=== PATIENT | male | born 1965 | race Caucasian/White ===

== ENCOUNTER 2019-08-12 17:12 | Inpatient (IN) | payer MEDICAID ==
[~2019-08-12] VITALS: Ht 177.8 cm; Wt 107.5 kg
[2019-08-12 17:12] VITALS: BP_SYST 129
--- NOTE | 2019-08-12 20:16 | NUR ---
Patient to ER bed 8 to gown for evaluation. Side rails up. Report given to AJ MERINO.
--- NOTE | 2019-08-12 20:20 | NUR ---
FRANCISCO Gamboa at bedside examining patient.
--- NOTE | 2019-08-12 20:25 | NUR ---
Pt C/O bilateral diabetic foot ulcers on bilateral feet and LT leg. States the pain in the Lt leg is radiating to the ankle and knee. Was recently seen at [facility] for the same chief complaint and was discharged with antibiotics and educated to change his socks TID. Addendum: 08/12/19 at 2209 by [email or web address] Pt also C/O LT hand numbness. Denies any other symptoms at this time. Will continue to monitor.
[2019-08-12] MEDS ORDERED: ONDANSETRON HCL 4 MG/2 ML VIAL IVP ONE (20:45)
[2019-08-12] MEDS ORDERED: NACL 0.9% 1,000 ML IV ONE (20:45)
[2019-08-12 20:58] LABS: BASOPHILS # (AUTO) 0.1 K/uL (0.0-0.2); BASOPHILS % (AUTO) 0.5 % (0.0-2.0); EOSINOPHILS # (AUTO) 0.1 K/uL (0.0-0.4); EOSINOPHILS % (AUTO) 0.5 % (0.0-4.0); HEMATOCRIT 35.9 % (36-54); HEMOGLOBIN 12.2 g/dL (14.0-18.0); LYMPHOCYTES # (AUTO) 1.1 K/uL (1.0-5.5); LYMPHOCYTES % (AUTO) 9.7 % (20.5-51.5); MEAN CORPUSCULAR HEMOGLOBIN 30 pg (27-31); MEAN CORPUSCULAR HGB CONC 34 % (32-36); MEAN CORPUSCULAR VOLUME 88 fL (79.0-98.0); MONOCYTES # (AUTO) 0.9 K/uL (0.0-1.0); MONOCYTES % (AUTO) 7.5 % (1.7-9.3); NEUTROPHILS # (AUTO) 9.5 K/uL (1.8-7.7); NEUTROPHILS % (AUTO) 81.8 % (40.0-70.0); PLATELET COUNT (AUTO) 237 K/uL (130-430); RED BLOOD CELL COUNT(AUTO) 4.07 MIL/uL (4.2-6.2); WHITE BLOOD COUNT (AUTO) 11.6 K/uL (4.8-10.8)
[2019-08-12 21:09] LABS: CREATININE 1.46 mg/dL (0.55-1.30); POTASSIUM 4.2 mmol/L (3.5-5.1)
[2019-08-12 21:15] LABS: ALBUMIN 3.2 g/dL (3.4-4.8)
[2019-08-12] MEDS ORDERED: ACETAMINOPHEN 500 MG TABLET PO ONE (21:15)
[2019-08-12] MEDS ORDERED: INSULIN REGULAR, HUMAN 10 UNITS/0.1 ML INJ SUBCUT ONE (21:15)
[2019-08-12] MEDS ORDERED: NS 250 ML IV ONE (21:30)
[2019-08-12] MEDS ORDERED: NACL 0.9% 2,000 ML IV ONE (21:30)
[2019-08-12] MEDS ORDERED: VANCOMYCIN HCL 1,000 MG in NS 250 ML IV ONE (21:30)
[2019-08-12] MEDS ORDERED: PIPERACILLIN/TAZO 3.375 GM in NS 50 ML IV ONE (21:30)
[2019-08-12] MEDS ORDERED: MORPHINE 4 MG/ML INJ. SYRINGE IVP ONE (21:45)
[2019-08-12] MEDS ORDERED: PIPERACILLIN/TAZOBACTAM 3.375 GM/VIAL (ZOSYN) IV ONE ×2 (21:59)
--- NOTE | 2019-08-12 22:10 | NUR ---
Pt is resting in bed, no acute distress noted. Will continue to monitor.
[2019-08-12] MEDS ORDERED: VANCOMYCIN HCL 1000 MG/VIAL IV ONE (22:21)
[2019-08-12] MEDS ORDERED: FAMO20TA8 PO (22:37)
[2019-08-12] MEDS ORDERED: GABA-533 PO (22:37)
[2019-08-12] MEDS ORDERED: METF1000 PO (22:37)
[2019-08-12] MEDS ORDERED: INSU100V SQ ×3 (22:37)
[2019-08-12] MEDS ORDERED: IBUP-1969 PO (22:37)
[2019-08-12] MEDS ORDERED: PRAZ1CAP2 PO (22:37)
[2019-08-12] MEDS ORDERED: LISI-600 PO (22:37)
[2019-08-12] MEDS ORDERED: SULF1TAB3 PO (22:37)
[2019-08-12] MEDS ORDERED: PRO20 PO (22:40)
--- NOTE | 2019-08-12 23:07 | NUR ---
Patient will be admitted to care of Dr. Parnell. Admitted to telemetry unit. Will go to room 134B. Belongings list completed. Summary report printed. Report will be given at bedside.
--- NOTE | 2019-08-12 23:24 | NUR ---
ADMISSION NOTE Received patient from ER via aj, received report from ANGELIQUE tolliver. Patient admitted with diagnosis of Cellulitis, sepsis. Patient oriented to hospital routine, call light, toileting and safety-patient verbalized understanding.
[2019-08-12 23:26] VITALS: BP_SYST 136
[2019-08-12 23:27] LABS: BILIRUBIN,URINE NEGATIVE (NEGATIVE); CLARITY/URINE CLEAR (CLEAR); COLOR,URINE YELLOW (YELLOW); GLUCOSE,URINE TRACE (NEGATIVE); KETONES,URINE TRACE (NEGATIVE); LEUKOCYTE ESTERASE ,URINE 1+ (NEGATIVE); NITRITE, URINE NEGATIVE (NEGATIVE); PH,URINE 6.5 (5.0-8.0); PROTEIN URINE 1+ (NEGATIVE); UROBILINOGEN,URINE 0.2 (0.2-1.0)
[2019-08-12 23:29] LABS: BLOOD, URINE TRACE (NEGATIVE)
[2019-08-12 23:33] LABS: BACTERIA,URINE FEW /HPF (None Seen)
--- NOTE | 2019-08-12 23:36 | NUR ---
Transfer to [facility] via ACLS protocol. Licensed nurse present. IV present no signs or symptoms of infiltration.
--- NOTE | 2019-08-13 00:18 | NUR ---
RN ROUNDS Patient aox4, placed on tele monitor, vital signs stable, BLE pain tolerable at this time, IV line to right hand intact and patent, no signs of infiltration, plan of care discussed with patient, verbalized understanding, compliant, oriented to room and call light for nurse assistance, safety measures in place.
--- NOTE | 2019-08-13 00:24 | NUR ---
MD Spoke to Dr. Duarte Parnell over the phone, patient was c/o of pain to lower extremities, new medication orders recieved, will carry out.
[2019-08-13] MEDS ORDERED: ONDANSETRON HCL 4 MG/2 ML VIAL IVP PRN ×2 (00:30→06:30)
[2019-08-13] MEDS ORDERED: MORPHINE 2 MG/ML INJ. SYRINGE IVP SCH (00:30)
[2019-08-13] MEDS ORDERED: PIPERACILLIN/TAZOBACTAM 3.375 GM/VIAL (ZOSYN) IV ONE (00:56)
--- NOTE | 2019-08-13 01:32 | NUR ---
RN ROUNDS Patient medicated with morphine 2 mg IVP one time dose, patient educated on use and side effect of medication, compliant, photos taken of wound to bilateral lower extremities. HS snack given.
--- NOTE | 2019-08-13 04:10 | NUR ---
CONSULTATION PAGED/CALLED Reason for Consultation: DIABETIC FOOT ULCER Person Who was Notified:OZZY Consulting Physician: RAYRAY Electrician Outside Specialty: ID Ordering Physician: Duarte WAGNER
--- NOTE | 2019-08-13 04:52 | NUR ---
RN ROUNDS Patient awake, ambulated to bathroom, steady gait noted, bilateral leg pain tolerable at this time.
[2019-08-13] MEDS: PIPERACILLIN/TAZO 3.375 GM in NS 50 ML IV SCH ×2 (05:12→13:00)
--- NOTE | 2019-08-13 05:30 | NUR ---
PAIN IN IV SITE Patient complaints of pain in the IV site when flushed with NS. Re inserted in the right hand 22 G needle, patency noted. Patient tolerated the procedure.
[2019-08-13] MEDS ORDERED: D5W 1,000 ML IV PRN (06:20)
[2019-08-13] MEDS ORDERED: GLUCOSE 15 GM GEL (in 37.5 GM TUBE) PO PRN (06:30)
[2019-08-13] MEDS ORDERED: ACETAMINOPHEN 325 MG TABLET PO PRN (06:30)
[2019-08-13] MEDS ORDERED: DEXTROSE 50% JECT 50 ML DISP.SYRIN IVP PRN (06:30)
[2019-08-13] MEDS ORDERED: IBUPROFEN 600 MG TABLET PO PRN (06:30)
[2019-08-13] MEDS ORDERED: LORazepam 2 MG/ML VIAL IVP PRN (06:30)
--- NOTE | 2019-08-13 06:55 | NUR ---
CONSULTATION PAGED/CALLED Reason for Consultation: [] ACUTE KIDNEY INJURY Person Who was Notified: [] OZZY Consulting Physician: [] DR DUNN Senior Outside Sales Representative Specialty: [] PROFESSOR OF RADIOLOGY Ordering Physician: [] DR Linda WAGNER
--- NOTE | 2019-08-13 06:58 | NUR ---
CLOSING NOTES Patient is awake, alert and oriented x4. Patient is watching TV. Patient has pain and no discomfort at this time. No respiratory distress. NO SOB. BS checked 229. Patients needs met and attended throughout the shift. Endorsed to morning shift nurse for continuity of care.
[2019-08-13 07:00] VITALS: BP_SYST 166
--- NOTE | 2019-08-13 07:00 | NUR ---
CONSULTATION PAGED/CALLED Reason for Consultation: [] DIABETIC FOOT ULCER Person Who was Notified: [] LEFT A VOICE MESSAGE Consulting Physician: [] SIL TEJEDA Cartridge Loading Operator Specialty: [] ALIGNER Ordering Physician: [] DR Linda WAGNER
[2019-08-13 08:00] VITALS: BP_SYST 166
[2019-08-13] MEDS: metFORMIN HCL 500 MG TABLET PO SCH ×2 (09:00→17:34)
[2019-08-13 09:28] LABS: BASOPHILS # (AUTO) 0.1 K/uL (0.0-0.2); BASOPHILS % (AUTO) 0.8 % (0.0-2.0); EOSINOPHILS # (AUTO) 0.2 K/uL (0.0-0.4); EOSINOPHILS % (AUTO) 2.1 % (0.0-4.0); HEMATOCRIT 35.9 % (36-54); HEMOGLOBIN 12.1 g/dL (14.0-18.0); LYMPHOCYTES # (AUTO) 0.6 K/uL (1.0-5.5); LYMPHOCYTES % (AUTO) 7.3 % (20.5-51.5); MEAN CORPUSCULAR HEMOGLOBIN 30 pg (27-31); MEAN CORPUSCULAR HGB CONC 34 % (32-36); MEAN CORPUSCULAR VOLUME 89 fL (79.0-98.0); MONOCYTES # (AUTO) 0.7 K/uL (0.0-1.0); MONOCYTES % (AUTO) 7.4 % (1.7-9.3); NEUTROPHILS # (AUTO) 7.4 K/uL (1.8-7.7); NEUTROPHILS % (AUTO) 82.4 % (40.0-70.0); PLATELET COUNT (AUTO) 267 K/uL (130-430); RED BLOOD CELL COUNT(AUTO) 4.06 MIL/uL (4.2-6.2); WHITE BLOOD COUNT (AUTO) 8.9 K/uL (4.8-10.8)
[2019-08-13] MEDS: MORPHINE 2 MG/ML INJ. SYRINGE IVP PRN ×2 (09:37→17:16)
[2019-08-13] MEDS: FLUoxetine HCL 20 MG CAPSULE (PROzac) PO SCH (09:41)
[2019-08-13] MEDS: GABAPENTIN 400 MG CAPSULE PO SCH ×3 (09:41→20:30)
[2019-08-13] MEDS: LISINOPRIL 20 MG TABLET PO SCH (09:42)
[2019-08-13] MEDS: FAMOTIDINE 20 MG TABLET PO SCH (09:47)
[2019-08-13 10:02] LABS: CALCIUM 8.8 mg/dL (8.4-11.0); CREATININE 1.19 mg/dL (0.55-1.30); POTASSIUM 4.8 mmol/L (3.5-5.1)
[2019-08-13 10:03] LABS: ALBUMIN 2.8 g/dL (3.4-4.8)
[2019-08-13 10:04] LABS: TOTAL BILIRUBIN 1.9 mg/dL (0.0-1.0)
[2019-08-13 10:05] LABS: C-REACTIVE PROTEIN QUANT 13.4 mg/dL (0-0.5)
[2019-08-13 10:08] LABS: ERYTHROCYTE SEDIMENTATION RATE 67 MM/HR (0-15)
--- NOTE | 2019-08-13 11:45 | NUR ---
WOUND EVALUATION: Wound Consult received from Dr. Dl Parnell. Thank you, Dr. Parnell, for the consult. Patient received in a Herb Bed with an IsoFlex JEANINE mattress, awake, alert, and oriented. Patient is able to turn in bed and ambulate independently. Dc Score is a 20. Past Medical History: Diabetes Mellitus, Hypertension, flesh eating bacterial infection, Neuropathy, skin graft abdomen, groin, foot. Admitted for evaluation of leaking diabetic ulcers on bilateral feet and left leg. Recent Labs: WBC 8.9, RBC 4.06, hemoglobin 12.1, hematocrit 35.9, ESR 67, sodium 131, BUN 15, creatinine 1.19, GFR 67, glucose 286, POC glucose 266, C-reactive protein 13.4, albumin 2.8. Microbiology: Blood culture results 2 in progress. Urine culture results in progress. Intrinsic factors that delay wound healing: Diabetes Mellitus, Neuropathy, Hypoalbuminemia. Extrinsic factors that delay wound healing: Decreased mobility. Wound Assessment: 1. Left Hallux, Plantar Aspect: Diabetic ulcer, present on admission. Wound bed has 100% yellow slough. Foul odor, scant yellow purulent drainage. Periwound intact. Wound measures 0.8 cm x 2.2 cm. Surrounding tissue has callused skin with 90% yellow callus, 10% black eschar. Entire site including callus/eschar and wound measures 5.0 cm x 3.0 cm. Nonpitting edema present on the extremity. Extremity has calor. Recommend: Cleanse wound with normal saline. Apply sure prep to periwound. Apply Venelex ointment to wound bed. Cover with nonadhesive foam dressing, cut to size. Wrap with Aminata wrap. Perform wound care daily, and as needed for dressing soiling or dislodgment. 2. Left Plantar Foot at First Metatarsal Head: Chronic diabetic ulcer, present on admission. Wound bed has 90% yellow eschar, black 10% black eschar on medial aspect of wound bed/periwound. No odor, no drainage. Dry, stable. Surrounding tissue has callused skin. Wound measures 0.5 cm x 0.6 cm. 3. Left Plantar Foot at Second Metatarsal Head: Chronic diabetic ulcer, present on admission. Wound bed has 90% yellow eschar, black 10% black eschar. No odor, no drainage. Dry, stable. Surrounding tissue has callused skin. Wound measures 1.4 cm x 1.7 cm. Recommend: No dressings needed. [employer] sites with Betadine. Continue to monitor site every shift. 4. Left Fifth Toe, superior to nail bed: Area of 50% Black discoloration, 50% dark red, under the skin. Possible chronic dry, closed bulla site. No odor, no drainage. Dry, stable. Site measures 0.6 cm x 1.5 cm. Recommend: No dressing needed. [employer] site with Betadine. Continue to monitor sites every shift. 5. Left Toenails (2, 4, 5): Black discoloration. No odor, no drainage. 6. Left Toenails (3, 4): Black discoloration. No odor, no drainage. Recommend: No dressings needed. Continue to monitor sites every shift. 7. Right Toe, Plantar Aspect: Diabetic ulcer, present on admission. Wound bed has 80% yellow eschar, 20% red eschar. Foul odor, scant yellow purulent drainage. Periwound intact. Surrounding tissue has callused skin. Wound measures 1.0 cm x 0.7 cm. Extremity has calor. Recommend: Cleanse wound with normal saline. Apply sure prep to periwound. Apply Venelex ointment to wound bed. Cover with nonadhesive foam dressing, cut to size. Wrap with Aminata wrap. Perform wound care daily, and as needed for dressing soiling or dislodgment. Also recommend: Encourage patient to reposition every 2 hours with pillow support and off-load pressure areas with pillows for pressure re-distribution. Offload, elevate and float bilateral heels with pillows. Perform skin care and monitor skin integrity Q shift.
[2019-08-13 12:00] VITALS: BP_SYST 140
[2019-08-13] MEDS ORDERED: PIPERACILLIN/TAZO 3.375/DEX-IS 50 ML IV SCH (12:00)
[2019-08-13] MEDS ORDERED: metFORMIN HCL 500 MG TABLET PO ONE (12:15)
[2019-08-13] MEDS ORDERED: BALSAM PERU/CASTOR OIL 60 GM OINT...G. TP ONE (12:30)
[2019-08-13] MEDS: NORMAL SALINE 5 ML DISP.SYRIN IVF SCH ×2 (13:12→20:41)
--- NOTE | 2019-08-13 15:11 | NUR ---
Wireless Sales Expert: FIELD CLINICAL ENGINEER received Homeless referrral. FIELD CLINICAL ENGINEER will do DCPA assessment, Homeless Assmt. and S. work assessment. FIELD CLINICAL ENGINEER met with pt. who had his sister, Garima Childs. Pt. stated sister could stay during FIELD CLINICAL ENGINEER's assessment. FIELD CLINICAL ENGINEER asked about pts. address listed on Face Sheet. He stated that was not accurate. He confiremd he was homeless with his son. They use to stay with his daughter, but due to a misunderstanding, they were asked to leave. Pt. stated he has been homeless for the past 5-6 months. From time to time, he stays with on his sister's sofa. Prior to being homeless, he was renting a room in [place], but the roommate and the homeowner association manager was raising the rent. Pt. only receives $195 in GR. Pt. stated substance abuse is not an issue for him. Pt. stated he is diabetic, needs a walker and needs a place to recuperate and reside. When asked if he has ever had a mental health Dx. pt. stated in 06/21, he was Dx. with PTSD by Dr. Rascon of [facility] who prescribes Prozac for pt. Pt stated he sees his therapist and psychiatrist on a regular basis. FIELD CLINICAL ENGINEER shared with pt. various resources including, Durable Power of Attny.. Homeless Packet, Mental Health resources, Medical Clinics. FIELD CLINICAL ENGINEER will follow up with a resource through [facility] , FS or Full Service Partnership. FIELD CLINICAL ENGINEER will call and follow up with pt. Addendum: 08/13/19 at 1633 by Latha Mclaughlin FIELD CLINICAL ENGINEER Wireless Sales Expert: Follow up homeless services FIELD CLINICAL ENGINEER called [facility] Full Service Partnership, Dewayne George,[phone] left a couple of msgs. FIELD CLINICAL ENGINEER would like to make a referral. FIELD CLINICAL ENGINEER called Access Line through [facility] [phone] and was given the Housing Navigator, Wali Echavarria [phone]. FIELD CLINICAL ENGINEER left a couple of msgs. FIELD CLINICAL ENGINEER was given the Homeless Service Prgm number, from Access, and spoke to Kristal who took down a referral on pt. FIELD CLINICAL ENGINEER can follow up on Friday. FIELD CLINICAL ENGINEER called [facility] spoke to pts. [facility] child welfare social worker Srinath French [phone] who stated pt. did not qualify for FSP because he did not have any phys hospitalizations. They did make a referral to their housing progrm. FIELD CLINICAL ENGINEER will share info with pt. and will follow up on Fri. FIELD CLINICAL ENGINEER will remain avaialable as needed.
--- NOTE | 2019-08-13 16:39 | NUR ---
CONSULTATION PAGED/CALLED Reason for Consultation: [] DM Person Who was Notified: [] ADINA Consulting Physician: [] Radha SMITH Asp Web Developer Specialty: [] ENDOCRINE Ordering Physician: [] DR Linda WAGNER
[2019-08-13 17:20] VITALS: BP_SYST 150
[2019-08-13] MEDS ORDERED: INSULIN Lispro 100 UNITS/ML VIAL (humaLOG) SQ SCH (17:30)
[2019-08-13 19:00] VITALS: BP_SYST 147
--- NOTE | 2019-08-13 19:15 | NUR ---
change of shift.pt.presents quiescent affect;calm.pt.presents cellulitis;wounds;feet.pt.presents no isolation status.pt.presents iv access intact;patent.iv fluids infusing.pt.utilizing the urinal;w/in pt.reach.general status stable.respiratory status stable.pt.capable to reposition self.call light/telephone w/in reach of the pt.
[2019-08-13 20:00] VITALS: BP_SYST 147
--- NOTE | 2019-08-13 20:00 | NUR ---
pt.assessed.v/s assessed;values w/in normal limits.no c/o pain,nausea.i have apprised the pt.that snacks/beverages are available w/in the shift. i have i attended to the urinal:measured;cleaned.placed w/in reach of the pt.iv access intact patent iv fluids infusing.pt.presents wounds; cellulitis;feet.i have assessed the wounds.lt.foot>involved than the rt.foot;edema more prominent;lt>rt.foot.general status stable. respiratory status stable;unlabored.pt.capable to reposition self.i have apprised the pt.that i may provide an assist device; walker:to assist w/ambulation.pt.stated he would appreciate the walker.i have provided the walker.pt.capable to reposition self. call light/telephone w/in reach of the pt.
[2019-08-13] MEDS ORDERED: VANCOMYCIN HCL 1000 MG/VIAL IV ONE (20:24)
[2019-08-13] MEDS: VANCOMYCIN HCL 1 GM/NS PREMIX 250 ML IV SCH (20:28)
[2019-08-13] MEDS: CEFEPIME 1 GM in D5W 50 ML IV SCH (20:28)
[2019-08-13] MEDS ORDERED: CEFEPIME 1 GM/VIAL (MAXIPIME) ONE (20:29)
[2019-08-13] MEDS: PRAZOSIN HCL 1 MG CAPSULE PO SCH (20:30)
--- NOTE | 2019-08-13 20:30 | NUR ---
i have assessed the blood glucose;value;83mg/dl.i apprised the pt.of the value.pt.was concerned.pt.stated he rarely presents a low value blood glucose value..i assessed the blood glucose:x2nd.the value;88mg/dl.pt.accepted the blood glucose results.i am to proved a snack.pt.prsents asymptomatic status.
--- NOTE | 2019-08-13 21:00 | NUR ---
2100pmedication administered.i have administered the cifepime/vancomycin;abx;ivpb the initial doses.pt.had requested a snack. i have provided a sandwich,jello,pudding.no additional requests posited @this hour.
--- NOTE | 2019-08-13 22:00 | NUR ---
pt.assessed.pt.presents quiescent affect;calm,viewing tv programming.pt's family;son visiting.no c/o pain,nausea.no requests posited@this hour.i have inspected the urinal.clean. iv access intact;patent;iv fluids infusing.general status stable.respiratory status stable.pt.capable to reposition self.call light/ telephone w/in reach of the pt.
[2019-08-14] VITALS: BP_SYST 131
--- NOTE | 2019-08-14 | NUR ---
pt.assessed/v./s assessed;values w/in normal limits.no c/o pain,nausea.no requests posited@this hour.iv access intact;patent;iv fluids infusing. i have inspected the urinal;clean.general status stable.respiratory status stable;unlabored.call light/telephone w/in reach of the pt.
[2019-08-14 00:44] VITALS: BP_SYST 101
--- NOTE | 2019-08-14 02:00 | NUR ---
pt.assessed.pt.presents quiescent affect;calm,somnolent.i have inspected the urinal;clean.i acces intact;patent;iv fluids infusing. general status stable;respiratory status stable;unlabored.pt.capable to reposition self.call light/telephone w/in reach of the pt.
--- NOTE | 2019-08-14 04:00 | NUR ---
pt.assessed.pt.presents quiescent affect;calm,somnolent.i have administered the vancomycin;abx;ivpb:0400a dose. iv access;intact;patent; iv fluids infusing.i have inspected the urinal;clean.general status stable.respiratory status stable;unlabored.call light/telephone w/in reach of the pt.
[2019-08-14] MEDS ORDERED: VANCOMYCIN HCL 1000 MG/VIAL IV ONE (04:01)
[2019-08-14] MEDS: VANCOMYCIN HCL 1 GM/NS PREMIX 250 ML IV SCH (04:05)
[2019-08-14] MEDS: NORMAL SALINE 5 ML DISP.SYRIN IVF SCH ×3 (05:36→22:51)
--- NOTE | 2019-08-14 06:29 | NUR ---
pt.assessed.pt.presents quiescent affect;calm,viewing tv programming.i have assessed the blood glucose;value;179mg/dl.no sliding scale ordered.pt.received the administration;humalog;12-u:am,15-u pm.scheduled.i have apprised the pt.of the value.no requests posited@this hour.iv access intact;patent iv fluids infusing.general status stable.respiratory status stable;unlabored.pt.had ambulated to the restroom:gait assessed steady.i have attended to the wound care.feet.call light/telephone w/in rec of the pt.
[2019-08-14 06:39] LABS: BASOPHILS % (AUTO) 0.6 % (0.0-2.0); EOSINOPHILS # (AUTO) 0.2 K/uL (0.0-0.4); EOSINOPHILS % (AUTO) 2.4 % (0.0-4.0); HEMOGLOBIN 11.6 g/dL (14.0-18.0); LYMPHOCYTES # (AUTO) 1.2 K/uL (1.0-5.5); LYMPHOCYTES % (AUTO) 14.4 % (20.5-51.5); MEAN CORPUSCULAR HEMOGLOBIN 30 pg (27-31); MEAN CORPUSCULAR HGB CONC 34 % (32-36); MEAN CORPUSCULAR VOLUME 88 fL (79.0-98.0); MONOCYTES # (AUTO) 0.9 K/uL (0.0-1.0); MONOCYTES % (AUTO) 10.8 % (1.7-9.3); NEUTROPHILS # (AUTO) 5.8 K/uL (1.8-7.7); NEUTROPHILS % (AUTO) 71.8 % (40.0-70.0); PLATELET COUNT (AUTO) 277 K/uL (130-430); RED BLOOD CELL COUNT(AUTO) 3.86 MIL/uL (4.2-6.2); RED CELL DISTRIBUTION WIDTH 13.2 % (9.0-15.0); WHITE BLOOD COUNT (AUTO) 8.1 K/uL (4.8-10.8)
[2019-08-14 07:14] LABS: CREATININE 1.49 mg/dL (0.55-1.30); PHOSPHORUS 3.2 mg/dL (2.7-4.5); POTASSIUM 4.2 mmol/L (3.5-5.1)
[2019-08-14 07:30] LABS: ERYTHROCYTE SEDIMENTATION RATE 83 MM/HR (0-15)
--- NOTE | 2019-08-14 07:50 | NUR ---
OPENING NOTES, RECEIVED PT IN BED, PT IS AAO, DENIES, NO SOB, NO RESP DISTRESS. IV FLUIDS INFUSING WELL . NOTED SWEELING ON LEFT LEG. DRESSING OF WOUNDS ON BOTH FEET INTACT AND CLEAN AND DRY. SAFETY PRECAUTION IN PLACE. CALL LIGHT IN REACH. ENCOURAGED TO CALL FOR ASSIST AND PAIN MEDS. WILL CONT TO MONITOR.
[2019-08-14 07:53] LABS: CALCIUM 8.4 mg/dL (8.4-11.0)
[2019-08-14] MEDS ORDERED: INSULIN Lispro 100 UNITS/ML VIAL (humaLOG) SQ SCH (08:00)
[2019-08-14 08:04] VITALS: BP_SYST 132
[2019-08-14] MEDS: FAMOTIDINE 20 MG TABLET PO SCH (08:24)
[2019-08-14] MEDS: FLUoxetine HCL 20 MG CAPSULE (PROzac) PO SCH (08:24)
[2019-08-14] MEDS: GABAPENTIN 400 MG CAPSULE PO SCH ×3 (08:24→22:52)
[2019-08-14] MEDS: metFORMIN HCL 500 MG TABLET PO SCH (08:25)
[2019-08-14] MEDS: CEFEPIME 1 GM in D5W 50 ML IV SCH ×2 (08:26→22:50)
[2019-08-14] MEDS: LISINOPRIL 20 MG TABLET PO SCH (08:26)
[2019-08-14] MEDS: HYDROcodone/ACETAMIN 10-325 MG TAB PO PRN (08:27)
[2019-08-14] MEDS: BALSAM PERU/CASTOR OIL 60 GM OINT...G. TP SCH (08:32)
[2019-08-14 08:37] LABS: C-REACTIVE PROTEIN QUANT 13.2 mg/dL (0-0.5)
[2019-08-14] MEDS ORDERED: DEXTROSE 50% JECT 50 ML DISP.SYRIN IVP PRN (09:00)
[2019-08-14] MEDS ORDERED: PIOGLITAZONE HCL 15 MG TABLET PO SCH (09:00)
--- NOTE | 2019-08-14 09:20 | NUR ---
Nutrition Update Dc Scale 18 noted. Pt admitted for Sepsis and Cellulitis Diet: CCHO, Cardiac BMI: 34.0 kg/m2 RD to follow per nutrition care standards.
[2019-08-14] MEDS: INSULIN Lispro 100 UNITS/ML VIAL (humaLOG) SUBCUT SCH ×2 (11:52→16:48)
[2019-08-14] MEDS: INSULIN LISPRO SLIDING SCALE 100 UNITS/ML VIAL (humaLOG) SUBCUT PRN ×2 (11:53→22:59)
[2019-08-14] MEDS: MORPHINE 2 MG/ML INJ. SYRINGE IVP PRN ×3 (11:58→22:52)
[2019-08-14 12:47] VITALS: BP_SYST 116
--- NOTE | 2019-08-14 14:11 | NUR ---
PT IN BED, RESTING COMFORTABLY , NO SOB, NO C/O PAIN. CALL LIGHT IN REACH. WILL CONT TO MONITOR.
[2019-08-14] MEDS: VANCOMYCIN HCL 1,250 MG in NS 250 ML IV SCH (15:15)
[2019-08-14] MEDS: NACL 0.9% 1,000 ML IV SCH (15:21)
--- NOTE | 2019-08-14 16:04 | NUR ---
dr Crandall at bedside doing i & d of the wounds, pt signed consent and time out done.
--- NOTE | 2019-08-14 16:25 | NUR ---
Dietitian Recommendations 1. Continue CCHO, Cardiac diet. 2. Glucerna BID with lunch and dinner. This will provide 220kcal and 10gPro per serving. 3. Lionel BID to aid with skin integrity. Please see Nutrition Assessment for details. LT, RD
--- NOTE | 2019-08-14 16:29 | NUR ---
DC PLANNING: CLINICAL PACKET HAS BEEN FAXED TO: [facility]. [facility] 2. [facility] [place] [facility] CM/DCP TO FOLLOW UP NEEDED.
[2019-08-14 17:01] VITALS: BP_SYST 126
--- NOTE | 2019-08-14 19:37 | NUR ---
CLOSING NOTES, PT ENDORSED TO NIGHT ANGELIQUE MATTHEW. PT HAS BEEN STABLE THE WHOLE SHIFT. NO FEVER, PT GIVEN PAIN MEDS REQUESTED. PT WAS SEEN BY DR LAY AND DID I& D OF THE FEET WOUNDS. SAMPLE SUBMITTED FOR CULTURE.
[2019-08-14 21:04] VITALS: BP_SYST 135
--- NOTE | 2019-08-14 21:15 | NUR ---
ASSIST PATIENT OUT OF BED AMBULATES WITH STEADY GAIT BRP FALL RISK MEASURES IMPLEMENTED & EFFECTIVE .
[2019-08-14] MEDS: PRAZOSIN HCL 1 MG CAPSULE PO SCH (22:51)
[2019-08-14] MEDS: INSULIN GLARGINE 100 UNITS/ML 10 ML VIAL SUBCUT SCH (22:57)
--- NOTE | 2019-08-15 | NUR ---
MORPHINE SULFATE 2 MG IVP ADMINISTER FOR GENERAL PAIN 05/12 AND HELPFUL .
--- NOTE | 2019-08-15 01:49 | NUR ---
HOURLY ROUNDING PATIENT AWAKE VERBALLY RESPONSIVE HOB ELEVATED WATCHING TELEVISION SAFETY MEASURES EFFECTIVE .
--- NOTE | 2019-08-15 01:53 | NUR ---
ZOFRAN 4 MG IVP ADMINISTER FOR GI UPSET & HELPFUL .
[2019-08-15] MEDS: NACL 0.9% 1,000 ML IV SCH ×3 (04:11→20:00)
[2019-08-15] MEDS: VANCOMYCIN HCL 1,250 MG in NS 250 ML IV SCH ×2 (04:11→16:39)
[2019-08-15] MEDS: MORPHINE 2 MG/ML INJ. SYRINGE IVP PRN ×3 (04:15→21:00)
--- NOTE | 2019-08-15 04:40 | NUR ---
MORPHINE SULFATE 2 MG IVP ADMINISTER FOR ACUTE PAIN GENERAL 05/12 & HELPFUL .
[2019-08-15] MEDS: NORMAL SALINE 5 ML DISP.SYRIN IVF SCH ×3 (06:29→21:01)
[2019-08-15] MEDS: INSULIN Lispro 100 UNITS/ML VIAL (humaLOG) SUBCUT SCH ×3 (06:32→17:20)
[2019-08-15] MEDS: INSULIN LISPRO SLIDING SCALE 100 UNITS/ML VIAL (humaLOG) SUBCUT PRN ×3 (06:33→20:59)
[2019-08-15 06:34] LABS: BASOPHILS % (AUTO) 0.6 % (0.0-2.0); EOSINOPHILS # (AUTO) 0.3 K/uL (0.0-0.4); EOSINOPHILS % (AUTO) 4.9 % (0.0-4.0); HEMATOCRIT 32.4 % (36-54); HEMOGLOBIN 11.1 g/dL (14.0-18.0); LYMPHOCYTES # (AUTO) 1.2 K/uL (1.0-5.5); MEAN CORPUSCULAR HEMOGLOBIN 30 pg (27-31); MEAN CORPUSCULAR HGB CONC 34 % (32-36); MEAN CORPUSCULAR VOLUME 88 fL (79.0-98.0); MONOCYTES # (AUTO) 0.8 K/uL (0.0-1.0); MONOCYTES % (AUTO) 11.1 % (1.7-9.3); NEUTROPHILS # (AUTO) 4.5 K/uL (1.8-7.7); NEUTROPHILS % (AUTO) 65.4 % (40.0-70.0); PLATELET COUNT (AUTO) 272 K/uL (130-430); RED BLOOD CELL COUNT(AUTO) 3.67 MIL/uL (4.2-6.2); RED CELL DISTRIBUTION WIDTH 12.8 % (9.0-15.0); WHITE BLOOD COUNT (AUTO) 6.9 K/uL (4.8-10.8)
[2019-08-15 07:51] LABS: CALCIUM 8.3 mg/dL (8.4-11.0); CREATININE 1.16 mg/dL (0.55-1.30); POTASSIUM 4.5 mmol/L (3.5-5.1)
[2019-08-15 07:53] LABS: C-REACTIVE PROTEIN QUANT 8.7 mg/dL (0-0.5)
[2019-08-15 08:00] VITALS: BP_SYST 115
--- NOTE | 2019-08-15 08:00 | NUR ---
opening notes, received pt in bed, pt is aaox4, denies pain this time, no sob, no resp distress, left leg still swollen, dressing on left and right feet cdi. safety precaution in place. call light in reach. will cont to monitor.
[2019-08-15 08:14] LABS: ERYTHROCYTE SEDIMENTATION RATE 87 MM/HR (0-15)
[2019-08-15] MEDS: FLUoxetine HCL 20 MG CAPSULE (PROzac) PO SCH (08:33)
[2019-08-15] MEDS: GABAPENTIN 400 MG CAPSULE PO SCH ×3 (08:33→20:56)
[2019-08-15] MEDS: LISINOPRIL 20 MG TABLET PO SCH (08:33)
[2019-08-15] MEDS: FAMOTIDINE 20 MG TABLET PO SCH (08:33)
[2019-08-15] MEDS: CEFEPIME 1 GM in D5W 50 ML IV SCH ×2 (08:33→20:55)
--- NOTE | 2019-08-15 10:56 | NUR ---
pt in bed, sleeping comfortable, no resp distress. will cont to monitor.
[2019-08-15] MEDS: BALSAM PERU/CASTOR OIL 60 GM OINT...G. TP SCH (11:33)
[2019-08-15 12:00] VITALS: BP_SYST 114
[2019-08-15 12:20] LABS: THYROID STIMULATING HORMONE 2.51 uIu/mL (0.36-3.74)
--- NOTE | 2019-08-15 13:38 | NUR ---
PT GIVEN MORPHINE FOR PAIN OF 05/12, INFORMED PT OF THE XRAY RESULTS. TOLD HIM TO WAIT FOR MD TO DISCUSS PLAN OF CARE.
[2019-08-15] MEDS: HYDROcodone/ACETAMIN 10-325 MG TAB PO PRN (16:38)
[2019-08-15 16:50] VITALS: BP_SYST 125
--- NOTE | 2019-08-15 18:26 | NUR ---
closing notes, pt has been stable the whole shift, given pain meds as requested, blood sugar checked. new iv access started on left forearm #20. iv fluid and iv antibiotics given. pt seen by dr landeros. [facility] made aware also of the xray results. said pt may need surgery and then dc to snf with iv abx. will endorse to night nurse.
--- NOTE | 2019-08-15 19:55 | NUR ---
OPENING NOTES Pt and endorsement received from day shift nurse. Pt is AAOx4 and lying in bed. Pt on IVF with NS at 100ml/hr and infusing well on left forearm G20. No complains of pain or discomfort at this time. No signs of acute distress or SOB noted. Encouraged to use call light when needed. Safety precautions in place with 2 side rails up, wheels locked, and bed in lowest level. Call light with pt. Will continue to monitor.
--- NOTE | 2019-08-15 20:09 | NUR ---
MIRNA TO ANGELIQUE VALLADARES THE WOUND CARE TREATMENT INDICATED IN THE PROGRESS NOTE OF DR LAY.
[2019-08-15 20:53] VITALS: BP_SYST 134
[2019-08-15] MEDS: PRAZOSIN HCL 1 MG CAPSULE PO SCH (20:55)
[2019-08-15] MEDS: INSULIN GLARGINE 100 UNITS/ML 10 ML VIAL SUBCUT SCH (20:59)
--- NOTE | 2019-08-15 21:00 | NUR ---
MED PASS All due meds given and pt tolerated well. Pt also complained of pain on both feet on wound area with a scale of 10/10. Morphine 2mg IVP given as ordered. Educated on safety and side effects like dizziness, pt verbalized understanding. IVF infusing well. Safety precautions in place and call light with pt. Will continue to monitor.
--- NOTE | 2019-08-15 23:50 | NUR ---
WOUND CARE Wound care done on both feet. Left foot big toe was cleansed with normal saline then cleansed with betadine. Covered with moistened betadine gauze and then dry gauze. Wrapped in kerlix and elastic bandage. Right foot second toe was cleansed with normal saline and pat dried with sterile gauze and covered in sterile gauze. Pt tolerated well. No signs of acute distress noted. Pt also signed PICC line consent and requested to have it inserted in the morning. Will inform warehouse team leader.
[2019-08-16 00:04] VITALS: BP_SYST 122
[2019-08-16] MEDS: NACL 0.9% 1,000 ML IV SCH ×2 (01:32→17:08)
--- NOTE | 2019-08-16 02:55 | NUR ---
ROUNDS Pt is resting in bed with both eyes closed, with visible chest rise and fall with non-labored breathing noted. Pt is easily arousable. No signs of acute distress noted. No needs at this time. Safety precautions in place and call light with pt. Will continue to monitor.
[2019-08-16] MEDS: VANCOMYCIN HCL 1,250 MG in NS 250 ML IV SCH ×2 (03:00→17:08)
[2019-08-16] MEDS: INSULIN Lispro 100 UNITS/ML VIAL (humaLOG) SUBCUT SCH ×3 (06:29→17:15)
[2019-08-16] MEDS: INSULIN LISPRO SLIDING SCALE 100 UNITS/ML VIAL (humaLOG) SUBCUT PRN ×4 (06:29→22:20)
[2019-08-16] MEDS: NORMAL SALINE 5 ML DISP.SYRIN IVF SCH ×3 (06:32→22:00)
--- NOTE | 2019-08-16 06:52 | NUR ---
CLOSING NOTES Pt is resting in bed with both eyes closed, with visible chest rise and fall with non-labored breathing noted. Pt is easily arousable. No complains of pain at this time. No signs of acute distress or SOB noted. All needs attended throughout the shift. IVF infusing well. Safety precautions maintained with 2 side rails up, wheels locked, and bed at lowest level. Call light with pt. Will endorse to day shift nurse.
[2019-08-16 07:54] LABS: BASOPHILS % (AUTO) 0.6 % (0.0-2.0); EOSINOPHILS # (AUTO) 0.4 K/uL (0.0-0.4); EOSINOPHILS % (AUTO) 5.4 % (0.0-4.0); HEMATOCRIT 35.1 % (36-54); HEMOGLOBIN 11.8 g/dL (14.0-18.0); LYMPHOCYTES # (AUTO) 1.3 K/uL (1.0-5.5); LYMPHOCYTES % (AUTO) 20.3 % (20.5-51.5); MEAN CORPUSCULAR HEMOGLOBIN 30 pg (27-31); MEAN CORPUSCULAR HGB CONC 34 % (32-36); MEAN CORPUSCULAR VOLUME 88 fL (79.0-98.0); MONOCYTES # (AUTO) 0.7 K/uL (0.0-1.0); MONOCYTES % (AUTO) 10.1 % (1.7-9.3); NEUTROPHILS # (AUTO) 4.1 K/uL (1.8-7.7); NEUTROPHILS % (AUTO) 63.6 % (40.0-70.0); PLATELET COUNT (AUTO) 296 K/uL (130-430); RED BLOOD CELL COUNT(AUTO) 3.96 MIL/uL (4.2-6.2); RED CELL DISTRIBUTION WIDTH 13.1 % (9.0-15.0); WHITE BLOOD COUNT (AUTO) 6.5 K/uL (4.8-10.8)
--- NOTE | 2019-08-16 08:00 | NUR ---
Opening note patient resting in bed, a/ox4, states moderate pain but tolerable at this time, educated the patient on pain management, plan of care and call light system, he verbalized understanding, IV line is patent and infusing well, bed in lowest position, two side rails up, call light within reach, fall and aspiration precautions in place.
[2019-08-16 08:07] LABS: CREATININE 1.13 mg/dL (0.55-1.30); POTASSIUM 4.4 mmol/L (3.5-5.1); TOTAL BILIRUBIN 0.5 mg/dL (0.0-1.0)
[2019-08-16 08:08] LABS: ALBUMIN 2.3 g/dL (3.4-4.8); C-REACTIVE PROTEIN QUANT 6.5 mg/dL (0-0.5); PHOSPHORUS 3.7 mg/dL (2.7-4.5)
[2019-08-16 08:21] VITALS: BP_SYST 142
[2019-08-16] MEDS: FAMOTIDINE 20 MG TABLET PO SCH (08:51)
[2019-08-16] MEDS: FLUoxetine HCL 20 MG CAPSULE (PROzac) PO SCH (08:51)
[2019-08-16] MEDS: GABAPENTIN 400 MG CAPSULE PO SCH ×3 (08:51→21:58)
[2019-08-16] MEDS: LISINOPRIL 20 MG TABLET PO SCH (08:51)
[2019-08-16] MEDS: CEFEPIME 1 GM in D5W 50 ML IV SCH ×2 (08:51→22:00)
--- NOTE | 2019-08-16 08:51 | NUR ---
Medication patient resting in bed, awake, educated on medications uses and potential side effects, he verbalized understanding and tolerated well, IV line is patent and infusing well, discussed plan of care with the patient, informed him that PICC line will be placed today, he verbalized understanding, patient agreed to try Neurontin PO for pain first and then to try PRN pain medication, continuing to monitor, bed in lowest position, two side rails up, call light within reach, fall and aspiration precautions in place.
[2019-08-16 08:53] LABS: CALCIUM 8.7 mg/dL (8.4-11.0)
[2019-08-16 08:55] LABS: ERYTHROCYTE SEDIMENTATION RATE 87 MM/HR (0-15)
[2019-08-16] MEDS: BALSAM PERU/CASTOR OIL 60 GM OINT...G. TP SCH (08:55)
--- NOTE | 2019-08-16 09:12 | NUR ---
D/C PLANNING: CM SPOKE WITH DELANEY DAVID [facility]. PLEASE CALL AND UPDATE PLANNED D/C DATE.
[2019-08-16] MEDS: MORPHINE 2 MG/ML INJ. SYRINGE IVP PRN ×2 (10:54→21:46)
--- NOTE | 2019-08-16 11:00 | NUR ---
RN rounds/Pain medication patient resting in bed, complaining of pain, educated on IV pain medication uses and potential side effects, he verbalized understanding IV line is patent and infusing well, blood glucose checked and insulin coverage provided per MD orders, patient tolerated well, continuing to monitor, bed in lowest position, two side rails up, call light within reach, fall and aspiration precautions in place.
--- NOTE | 2019-08-16 12:07 | NUR ---
PICC line nurse at bedside explained the procedure to the patient, patient is agreeable and verbalized understanding, time out performed, continuing to monitor the patient. Addendum: 08/16/19 at 1208 by Angel Rabago RN correct time 1150 Addendum: 08/16/19 at 1217 by Angel Rabago RN called Radiology for chest xray
--- NOTE | 2019-08-16 13:08 | NUR ---
Dr. Parnell rounds updated with plan of care, states okay to use PICC line.
--- NOTE | 2019-08-16 15:47 | NUR ---
RN rounds/medication patient resting in bed, awake, denies pain, informed patient that Dr. Cummings was paged twice to find out about plan of care, patient verbalized understanding. Educated the patient about medication uses and potential side effects, he verbalized understanding and tolerated well, no other needs at this time, continuing to monitor, bed in lowest position, two side rails, call light within reach, fall and aspiration precautions in place.
--- NOTE | 2019-08-16 16:15 | NUR ---
Dr. Cummings paged regarding plan of care updates, patient inquiring if amputation of left big toe will be done or if antibiotics will be required first, Charge Nurse Tanya had paged Dr. Cummings exchange, the exchange at the [place] office stated they will inform Dr. Cummings to call back.
[2019-08-16 16:18] VITALS: BP_SYST 137
--- NOTE | 2019-08-16 16:32 | NUR ---
Called pharmacy waiting on pending 1600 dose of Vancomycin IV, spoke with Germain, dose to be delivered.
--- NOTE | 2019-08-16 16:41 | NUR ---
DC PLANNING: SPOKE WITH DR. WAGNER REGARDING DC PLAN. PER MD, PLAN FOR PATIENT TO HAVE AMPUTATION FIRST AND DC PLAN TO SNF AFTER SURGERY. CM TO FOLLOW UP NEEDED.
--- NOTE | 2019-08-16 17:21 | NUR ---
RN rounds/Medication patient resting in bed, awake, denies pain, educated on IV antibiotic uses and potential side effects, he verbalized understanding, PICC line is patent and infusing well, blood glucose checked and insulin coverage provided per MD orders, no other needs at this time, bed in lowest position, two side rails up, call light within reach, fall and aspiration precautions in place.
--- NOTE | 2019-08-16 18:29 | NUR ---
Closing note patient resting in bed, patient in stable condition, no signs of distress, all needs met, will endorse report to NOC shift nurse, patient bed in lowest position, two side rails up, call light within reach, fall and aspiration precautions in place.
[2019-08-16] MEDS: HYDROcodone/ACETAMIN 10-325 MG TAB PO PRN (19:57)
[2019-08-16] MEDS: INSULIN GLARGINE 100 UNITS/ML 10 ML VIAL SUBCUT SCH (22:22)
[2019-08-16] MEDS: PRAZOSIN HCL 1 MG CAPSULE PO SCH (22:28)
[2019-08-16 23:34] VITALS: BP_SYST 137
--- NOTE | 2019-08-17 00:56 | NUR ---
COMPLETE PHYSICAL ASSESSMENT DONE. PT A/O X4. AMBULATORY. ENCOURGED PT TO CALL NURSE WHEN GETTING OUT OF BED. NURSING CALL LIGHT AT BED SIDE AND BED ALARM ON. C/O OF PAIN AND PAIN MEDS GIVEN FOR PAIN CONTROL.
--- NOTE | 2019-08-17 01:31 | NUR ---
ENDORSEMENT RECEIVED ENDORSEMENT FROM ANGELIQUE CONTRERAS. PATIENT AWAKE IN BED. SON AT BEDSIDE. IVF INFUSING ORDERED. CALL LIGHT WITH IN REACH. BED IN LOWEST LOCKED POSITION.
[2019-08-17] MEDS: VANCOMYCIN HCL 1,250 MG in NS 250 ML IV SCH ×2 (04:25→16:21)
--- NOTE | 2019-08-17 04:25 | NUR ---
ATB PATIENT DUE ANTIBIOTIC INFUSED. NO C/O PAIN AT THIS TIME. SON AT BEDSIDE.
[2019-08-17] MEDS: NORMAL SALINE 5 ML DISP.SYRIN IVF SCH ×2 (06:00→13:54)
[2019-08-17] MEDS: NACL 0.9% 1,000 ML IV SCH ×3 (06:17→20:48)
[2019-08-17] MEDS: INSULIN Lispro 100 UNITS/ML VIAL (humaLOG) SUBCUT SCH ×3 (06:31→17:13)
[2019-08-17] MEDS: INSULIN LISPRO SLIDING SCALE 100 UNITS/ML VIAL (humaLOG) SUBCUT PRN ×3 (06:34→17:13)
[2019-08-17 06:51] LABS: BASOPHILS # (AUTO) 0.1 K/uL (0.0-0.2); EOSINOPHILS # (AUTO) 0.4 K/uL (0.0-0.4); EOSINOPHILS % (AUTO) 6.7 % (0.0-4.0); HEMATOCRIT 33.1 % (36-54); HEMOGLOBIN 11.1 g/dL (14.0-18.0); LYMPHOCYTES # (AUTO) 1.5 K/uL (1.0-5.5); LYMPHOCYTES % (AUTO) 24.8 % (20.5-51.5); MEAN CORPUSCULAR HEMOGLOBIN 30 pg (27-31); MEAN CORPUSCULAR HGB CONC 33 % (32-36); MEAN CORPUSCULAR VOLUME 88 fL (79.0-98.0); MONOCYTES # (AUTO) 0.6 K/uL (0.0-1.0); MONOCYTES % (AUTO) 9.7 % (1.7-9.3); NEUTROPHILS # (AUTO) 3.6 K/uL (1.8-7.7); NEUTROPHILS % (AUTO) 57.8 % (40.0-70.0); PLATELET COUNT (AUTO) 315 K/uL (130-430); RED BLOOD CELL COUNT(AUTO) 3.76 MIL/uL (4.2-6.2); RED CELL DISTRIBUTION WIDTH 12.9 % (9.0-15.0); WHITE BLOOD COUNT (AUTO) 6.2 K/uL (4.8-10.8)
--- NOTE | 2019-08-17 07:00 | NUR ---
CLOSING NOTES WOUND CARE DONE ON PATIENT LEFT AND RT FOOT ULCER ORDERED. PATIENT NEEDS ATTENDED. CALL LIGHT WITH IN REACH. BED IN LOWEST LOCKED POSITION.
[2019-08-17 07:07] LABS: C-REACTIVE PROTEIN QUANT 4.2 mg/dL (0-0.5); CREATININE 1.03 mg/dL (0.55-1.30); PHOSPHORUS 3.7 mg/dL (2.7-4.5); POTASSIUM 3.8 mmol/L (3.5-5.1)
[2019-08-17 07:25] LABS: CALCIUM 8.4 mg/dL (8.4-11.0)
--- NOTE | 2019-08-17 07:45 | NUR ---
opening note patient is resting in bed, A&Ox4, assessment completed, educated investor relations manager light system and plan of care, patient verbalized understanding, patient complaining of pain 4/10 but does not want any pain medications at this time, no signs of distress, on room air, IV fluids running, and tolerating well, fall/safety precautions in place.
[2019-08-17 08:07] LABS: ERYTHROCYTE SEDIMENTATION RATE 86 MM/HR (0-15)
[2019-08-17 08:19] VITALS: BP_SYST 133
[2019-08-17] MEDS: CEFEPIME 1 GM in D5W 50 ML IV SCH (08:56)
[2019-08-17] MEDS: FAMOTIDINE 20 MG TABLET PO SCH (08:56)
[2019-08-17] MEDS: GABAPENTIN 400 MG CAPSULE PO SCH ×3 (08:56→21:00)
[2019-08-17] MEDS: LISINOPRIL 20 MG TABLET PO SCH (08:56)
[2019-08-17] MEDS: BALSAM PERU/CASTOR OIL 60 GM OINT...G. TP SCH (08:57)
[2019-08-17] MEDS: FLUoxetine HCL 20 MG CAPSULE (PROzac) PO SCH (08:57)
--- NOTE | 2019-08-17 10:12 | NUR ---
rounds patient is resting in bed, no signs of distress, no needs addressed at this time, IV fluids running, tolerating well, fall/safety precautions in place.
[2019-08-17 11:32] VITALS: BP_SYST 143
[2019-08-17 11:35] VITALS: BP_SYST 128
[2019-08-17 12:10] VITALS: BP_SYST 128
--- NOTE | 2019-08-17 12:10 | NUR ---
rounds patient is resting in bed, no signs of distress, no needs addressed at this time, IV fluids running, tolerating well, fall/safety precautions in place.
[2019-08-17] MEDS: MORPHINE 2 MG/ML INJ. SYRINGE IVP PRN ×2 (13:54→20:42)
--- NOTE | 2019-08-17 14:15 | NUR ---
medications patient resting in bed, educated on medication uses and side effects, patient verbalized understanding, no other needs addressed at this time, fall/safety precautions in place. Addendum: 08/17/19 at 1635 by Jayne Smith RN 1615 MEDICATIONS
--- NOTE | 2019-08-17 14:50 | NUR ---
rounds patient resting in bed, patient requested for hot tea, IV fluids running, no other needs at this time, fall/safety precautions in place.
[2019-08-17 15:37] VITALS: BP_SYST 134
--- NOTE | 2019-08-17 16:26 | NUR ---
Nutritional F/U RD reviewed pts current EMR including diet Hx, physicians notes, nursing notes, pertinent labs/meds/procedures, care trends, and care activity. Subjective Information Pt was seen resting in bed during time of visit. Pt stated his appetite was better and reported nausea. Pt expressed interest in Glucerna BID to ensure optimal nutrition was achieved if he missed meals. Pt bed scale weight was 249.1 lb - may be inaccurate due to linens. Nutrition education was provided 08/17. Please refer to interdisciplinary teaching record for details. Adj IBW (obesity): 184#/84 kg used to re-calculate nutritional needs. Current Diet Order/Nutrition Support CCHO, Cardiac x 4 days Pertinent Labs POC Glucose: 153 H, (labs trending down) 194, 179, 88, 83, 240, BG 189 H, GFR 80 L, Na 135 L Current % PO 85% PO intake x9 meals NEW Estimated Energy Expenditure (kcals/day) 8533-5538 kcal (30-35kcal/kg based on ABW for critical illness/sepsis) NEW Estimated Protein Required (g/day) 109-151 gm/day (1.3-1.8g/kg based on ABW for critical illness/sepsis/wound healing) Estimated Fluid Required (l/day) MD r/t CKD Problem/Etiology/Signs/Symptoms Increased nutrient needs related to increased metabolic demands as evidenced by critical illness (sepsis), compromised skin integrity (wound to left and right toe) and estimated nutritional needs for wound healing. (*ongoing) Unintended weight loss likely related to medical condition induced poor appetite as evidenced by 3% weight loss in 1 month, pt report of poor appetite. (*stable, pt w/ good appetite) Expected Outcomes/Goals - Monitor appetite and PO intakes w/ goal of pt meeting at least 85% of estimated nutritional needs, labs trending WNL, normal GI function, and skin integrity/wt maintenance. (* ongoing) Dietitian Recommendations 1.Recommend CCHO, Cardiac diet with Glucerna BID, Lionel BID (600 kcal/day and 25gm protein/day) Follow Up Moderate Risk: F/U in 3-5 days Signed: 08/17/19 at 1628 by Monique PA <Co-Signature Required> Co-Signed: 08/17/19 at [address]
--- NOTE | 2019-08-17 16:31 | NUR ---
Dietitian Recommendations * Recommend CCHO, Cardiac diet with Glucerna BID, Lionel BID (600 kcal/day and 25gm protein/day) OPAL, RD Please refer to Nutrition F/U for details. Signed: 08/17/19 at 1631 by Monique PA <Co-Signature Required> Co-Signed: 08/17/19 at [address]
--- NOTE | 2019-08-17 18:48 | NUR ---
closing note patient is resting in bed, no signs of distress, on room air, IV fluids running and tolerating well, fall/safety precautions in place, will endorse report to noc shift nurse to continue with care, Dr Parnell came to see patient, Dr Parnell called Dr Merchant twice on his cellphone and I called her three time with the number provided and all calls went straight to voicemail, awaiting to hear from her for the next plan of care, patient calls for assistance to the bathroom, he uses a walker and asks to be disconnected from the IV, two side rails up, call light within reach.
--- NOTE | 2019-08-17 19:24 | NUR ---
OPENING NOTES Patient is resting, HOB elevated. Patient states pain at this time. Will provided PRN pain medication. No signs of acute respiratory distress. IVF running to Left Upper arm PICC, dressings c/d/i. Call light within reach, bed at lowest position. Patient refuses bed alarm, patient education provided of risks and benefits and patient verbalizes understanding. Will continue to monitor.
[2019-08-17 20:00] VITALS: BP_SYST 149
--- NOTE | 2019-08-17 20:45 | NUR ---
Pain medication PRN provided, patient tolerated well. PO medication provided, vitals stable. Will continue to monitor.
[2019-08-17] MEDS: PRAZOSIN HCL 1 MG CAPSULE PO SCH (21:00)
[2019-08-17] MEDS: INSULIN GLARGINE 100 UNITS/ML 10 ML VIAL SUBCUT SCH (21:02)
[2019-08-17] MEDS: ceFAZolin SODIUM 1 GM in D5W 50 ML IV SCH (21:10)
--- NOTE | 2019-08-17 22:15 | NUR ---
Patient is resting after ambulating with a walker to the restroom. Patient has no signs of acute respiratory distress. Patient provided with medications, patient tolerated well. Will continue to monitor.
--- NOTE | 2019-08-18 00:16 | NUR ---
Patient is resting, eyes closed. No signs of acute respiratory distress. Will continue to monitor.
[2019-08-18 01:27] VITALS: BP_SYST 131
--- NOTE | 2019-08-18 02:14 | NUR ---
Patient is resting, eyes open. No signs of acute respiratory distress observed. Will continue to monitor.
--- NOTE | 2019-08-18 04:24 | NUR ---
Patient is asleep, no SOB observed. Will continue to monitor.
[2019-08-18] MEDS: NORMAL SALINE 5 ML DISP.SYRIN IVF SCH ×2 (05:34→05:35)
[2019-08-18] MEDS: ceFAZolin SODIUM 1 GM in D5W 50 ML IV SCH (05:36)
[2019-08-18] MEDS: INSULIN Lispro 100 UNITS/ML VIAL (humaLOG) SUBCUT SCH ×2 (06:10→11:19)
--- NOTE | 2019-08-18 07:25 | NUR ---
CLOSING NOTES Patient is resting, eyes open. No signs of acute respiratory distress. HOB elevated. IVF running to Left arm PICC, dressings c/d/i. Endorsed care to ANGELIQUE Godoy. Patient still refused bed alarm, call light within reach, bed at lowest position. All needs met throughout shift.
[2019-08-18 07:26] LABS: BASOPHILS # (AUTO) 0.1 K/uL (0.0-0.2); BASOPHILS % (AUTO) 0.9 % (0.0-2.0); EOSINOPHILS # (AUTO) 0.4 K/uL (0.0-0.4); EOSINOPHILS % (AUTO) 6.2 % (0.0-4.0); HEMATOCRIT 30.9 % (36-54); HEMOGLOBIN 10.5 g/dL (14.0-18.0); LYMPHOCYTES # (AUTO) 1.5 K/uL (1.0-5.5); LYMPHOCYTES % (AUTO) 23.4 % (20.5-51.5); MEAN CORPUSCULAR HEMOGLOBIN 30 pg (27-31); MEAN CORPUSCULAR HGB CONC 34 % (32-36); MEAN CORPUSCULAR VOLUME 89 fL (79.0-98.0); MONOCYTES # (AUTO) 0.4 K/uL (0.0-1.0); MONOCYTES % (AUTO) 6.2 % (1.7-9.3); NEUTROPHILS # (AUTO) 4.1 K/uL (1.8-7.7); NEUTROPHILS % (AUTO) 63.3 % (40.0-70.0); PLATELET COUNT (AUTO) 315 K/uL (130-430); RED BLOOD CELL COUNT(AUTO) 3.48 MIL/uL (4.2-6.2); WHITE BLOOD COUNT (AUTO) 6.4 K/uL (4.8-10.8)
--- NOTE | 2019-08-18 07:30 | NUR ---
opening note patient is resting in bed, A&Ox4, assessment completed, educated urgent care nurse practitioner light system and plan of care, patient verbalized understanding, patient complaining of pain 5/10 but does not want any pain medications at this time, no signs of distress, on room air, IV fluids running, and tolerating well, fall/safety precautions in place.
[2019-08-18 07:34] LABS: C-REACTIVE PROTEIN QUANT 2.5 mg/dL (0-0.5)
[2019-08-18 08:01] LABS: CALCIUM 7.9 mg/dL (8.4-11.0); CREATININE 0.92 mg/dL (0.55-1.30); POTASSIUM 3.7 mmol/L (3.5-5.1)
[2019-08-18 08:06] VITALS: BP_SYST 129
[2019-08-18 09:05] LABS: ERYTHROCYTE SEDIMENTATION RATE 83 MM/HR (0-15)
[2019-08-18] MEDS ORDERED: INSU100V9 SUBCUT (09:17)
[2019-08-18] MEDS: BALSAM PERU/CASTOR OIL 60 GM OINT...G. TP SCH (09:39)
[2019-08-18] MEDS: GABAPENTIN 400 MG CAPSULE PO SCH (09:39)
[2019-08-18] MEDS: FLUoxetine HCL 20 MG CAPSULE (PROzac) PO SCH (09:39)
[2019-08-18] MEDS: FAMOTIDINE 20 MG TABLET PO SCH (09:40)
[2019-08-18] MEDS: LISINOPRIL 20 MG TABLET PO SCH (09:40)
--- NOTE | 2019-08-18 09:40 | NUR ---
medications patient resting in bed, educated on medication uses and side effects, patient verbalized understanding and tolerating well, I informed that patient that Dr Parnell talked to Dr Merchant on the phone and the plan is to transfer him to a SNF and will do outpatient surgery, patient verbalized understanding.
[2019-08-18] MEDS ORDERED: INSU100V42 SQ (10:52)
[2019-08-18 10:57] VITALS: BP_SYST 132
--- NOTE | 2019-08-18 11:20 | NUR ---
blood sugar check blood sugar done 135, educated on scheduled lispro use and side effects, patient verbalized understanding, no other needs at this time, fall/safety precautions in place.
--- NOTE | 2019-08-18 11:22 | NUR ---
D/C Planning: DCP arranged with Bill ([phone]) 1:00pm P/U to Angela Kim ([phone]) Rm [id number] Patient packet taken to nurse station.
[2019-08-18 11:25] VITALS: BP_SYST 132
--- NOTE | 2019-08-18 12:50 | NUR ---
PT TRANSFERRED Report given to Robert at [facility]. Transfer packet with Transfer Orders and Medication Reconciliation form given to EMT with report. Exitcare provided. [facility] ID band removed, replaced with ID band with pt's name and . PICC line left in. All belongings sent with patient. Patient left floor via gurney escorted by EMT in no distress.
--- NOTE | 2019-08-20 15:58 | NUR ---
Clinical Quality Assurance Associate: Follow up re. [facility] WEATHER STRIP INSTALLER received call from [facility] Erika Ambriz re. pts. criteria for [facility]. Erika stated pt. does not meet criteria as she is deferring to pts. therapist at [facility].
== END 2019-08-18 12:50 | DRG 720 ==
LOC: SED 17:12 → STU 22:02 → SMU 08-13 16:30
PROVIDERS: ADMIT Preventive Medicine Preventive Medicine/Occupational Environmental Medicine; ATTEND Preventive Medicine Preventive Medicine/Occupational Environmental Medicine
PROC: 02HV33Z Insertion of Infusion Device into Superior Vena Cava, Percutaneous Approach (ICD-10-PCS; principal; 2019-08-13)
PROC: B548ZZA Ultrasonography of Superior Vena Cava, Guidance (ICD-10-PCS; 2019-08-13)
DX: A41.01 Sepsis due to Methicillin susceptible Staphylococcus aureus (principal); N17.0 Acute kidney failure with tubular necrosis; E87.2 Acidosis; E11.21 Type 2 diabetes mellitus with diabetic nephropathy; E11.42 Type 2 diabetes mellitus with diabetic polyneuropathy; M86.8X6 Other osteomyelitis, lower leg; L03.031 Cellulitis of right toe; D64.9 Anemia, unspecified; E11.22 Type 2 diabetes mellitus with diabetic chronic kidney disease; E11.51 Type 2 diabetes mellitus with diabetic peripheral angiopathy without gangrene; E11.621 Type 2 diabetes mellitus with foot ulcer; E11.622 Type 2 diabetes mellitus with other skin ulcer; E11.65 Type 2 diabetes mellitus with hyperglycemia; E11.69 Type 2 diabetes mellitus with other specified complication; E87.0 Hyperosmolality and hypernatremia; E88.09 Other disorders of plasma-protein metabolism, not elsewhere classified; I12.9 Hypertensive chronic kidney disease with stage 1 through stage 4 chronic kidney disease, or unspecified chronic kidney disease; L97.519 Non-pressure chronic ulcer of other part of right foot with unspecified severity; L97.529 Non-pressure chronic ulcer of other part of left foot with unspecified severity; N18.9 Chronic kidney disease, unspecified; Z79.4 Long term (current) use of insulin; Z83.3 Family history of diabetes mellitus; Z87.39 Personal history of other diseases of the musculoskeletal system and connective tissue; Z91.19 Patient's noncompliance with other medical treatment and regimen; Z59.0 Homelessness; E44.1 Mild protein-calorie malnutrition
CPT/HCPCS: 36415; 71045; 76770; 80048; 80053; 80202-TC; 81000-TC; 82962; 83036; 83605; 83735-TC; 84100-TC; 84443-TC; 85025; 85610-TC; 85651-TC; 85730-TC; 86140; 87040-TC; 87070-TC; 87086; 87186-TC; 93005; 96365; 96366; 96367; 96375; 99291; C1751; G0378; J0690; J0692; J1815; J2270; J2405; J2543; J3370; J7030; J7050; J7060

== ENCOUNTER 2019-08-29 11:40 | Emergency (ER) | payer MEDICAID ==
[~2019-08-29] VITALS: Ht 177.8 cm; Wt 104.3 kg
[2019-08-29 11:40] VITALS: BP_SYST 171
[~2019-08-29 11:40] MED LIST: FAMO20TA8 PO; GABA-533 PO; IBUP-1969 PO; INSU100V42 SQ; INSU100V9 SUBCUT; LISI-600 PO; PRAZ1CAP2 PO; PRO20 PO; SULF1TAB3 PO
[2019-08-29] MEDS ORDERED: HEPARIN IV FLUSH 300 UNITS/3ML SYR INJ ONE (11:45)
[2019-08-29 12:37] VITALS: BP_SYST 166
== END 2019-08-29 12:35 | disposition home or self-care (01) ==
LOC: SED 11:40
DX: T82.898A Other specified complication of vascular prosthetic devices, implants and grafts, initial encounter (principal); I10 Essential (primary) hypertension; E11.9 Type 2 diabetes mellitus without complications; Z79.899 Other long term (current) drug therapy
CPT/HCPCS: 99283; J1642

== ENCOUNTER 2020-03-16 18:45 | Emergency (ER) | payer MEDICAID ==
[~2020-03-16] VITALS: Ht 177.8 cm; Wt 108.9 kg
[2020-03-16 18:50] VITALS: BP_SYST 120
[2020-03-16] MEDS ORDERED: NACL 0.9% 1,000 ML IV ONE (18:56)
[2020-03-16] MEDS ORDERED: PIPERACILLIN/TAZO 3.375 GM in NS 50 ML IV ONE (19:00)
[2020-03-16] MEDS ORDERED: PIPERACILLIN/TAZOBACTAM 3.375 GM/VIAL (ZOSYN) IV ONE (19:58)
[2020-03-16 20:34] LABS: BASOPHILS % (AUTO) 0.5 % (0.0-2.0); EOSINOPHILS # (AUTO) 0.4 K/uL (0.0-0.4); EOSINOPHILS % (AUTO) 4.3 % (0.0-4.0); HEMATOCRIT 38.4 % (36-54); HEMOGLOBIN 13.1 g/dL (14.0-18.0); LYMPHOCYTES # (AUTO) 1.8 K/uL (1.0-5.5); LYMPHOCYTES % (AUTO) 20.8 % (20.5-51.5); MEAN CORPUSCULAR HEMOGLOBIN 30 pg (27-31); MEAN CORPUSCULAR HGB CONC 34 % (32-36); MEAN CORPUSCULAR VOLUME 87 fL (79.0-98.0); MONOCYTES # (AUTO) 0.7 K/uL (0.0-1.0); MONOCYTES % (AUTO) 7.9 % (1.7-9.3); NEUTROPHILS # (AUTO) 5.6 K/uL (1.8-7.7); NEUTROPHILS % (AUTO) 66.5 % (40.0-70.0); PLATELET COUNT (AUTO) 274 K/uL (130-430); RED CELL DISTRIBUTION WIDTH 13.3 % (9.0-15.0); WHITE BLOOD COUNT (AUTO) 8.4 K/uL (4.8-10.8)
[2020-03-16 20:41] LABS: CALCIUM 8.9 mg/dL (8.4-11.0); CREATININE 1.32 mg/dL (0.55-1.30); POTASSIUM 4.3 mmol/L (3.5-5.1)
[2020-03-16 20:51] LABS: TOTAL BILIRUBIN 0.7 mg/dL (0.0-1.0)
[2020-03-16 20:52] LABS: ALBUMIN 2.9 g/dL (3.4-4.8)
[2020-03-16 21:10] LABS: BILIRUBIN,URINE NEGATIVE (NEGATIVE); CLARITY/URINE CLEAR (CLEAR); COLOR,URINE YELLOW (YELLOW); GLUCOSE,URINE 2+ (NEGATIVE); KETONES,URINE NEGATIVE (NEGATIVE); LEUKOCYTE ESTERASE ,URINE NEGATIVE (NEGATIVE); NITRITE, URINE NEGATIVE (NEGATIVE); PROTEIN URINE 2+ (NEGATIVE); UROBILINOGEN,URINE 0.2 (0.2-1.0)
[2020-03-16 21:15] LABS: BLOOD, URINE TRACE (NEGATIVE)
[2020-03-16 21:16] LABS: RBC,URINE 0-3 /HPF (0-3)
[2020-03-16 21:17] LABS: BACTERIA,URINE FEW /HPF (None Seen); MUCUS,URINE None Seen /LPF (None Seen)
[2020-03-16 22:00] VITALS: BP_SYST 138
== END 2020-03-16 22:00 | disposition home or self-care (01) ==
LOC: SED 18:45
DX: E11.622 Type 2 diabetes mellitus with other skin ulcer (principal); I10 Essential (primary) hypertension; Z79.4 Long term (current) use of insulin; Z79.899 Other long term (current) drug therapy; Z20.828 Contact with and (suspected) exposure to other viral communicable diseases
CPT/HCPCS: 36415; 71045; 73630; 73660; 80053; 81000; 83605; 85025; 87040; 93005; 96365; 99285; J2543; J7030; U0002

== ENCOUNTER 2021-09-09 11:59 | Emergency (ER) | payer MEDICAID, SELFPAY ==
[~2021-09-09] VITALS: Ht 177.8 cm; Wt 97.5 kg
[~2021-09-09 11:59] MED LIST changes: -LISI-600 PO; +LISI20TA30 PO
[2021-09-09 12:00] VITALS: BP_SYST 164
--- NOTE | 2021-09-09 12:05 | NUR ---
Patient triaged and placed in waiting room. VSS and patient appears in no acute distress at this time. Accompanied by SELF, awaiting available bed, and MD notified of need for MSE.
--- NOTE | 2021-09-09 12:25 | NUR ---
DR MITTAL TO TRIAGE ROOM FOR EVALUATION
--- NOTE | 2021-09-09 12:40 | NUR ---
TAKEN TO RADIOLOGY VIA WHEELCHAIR
[2021-09-09 12:47] LABS: BASOPHILS # (AUTO) 0.1 K/uL (0.0-0.2); EOSINOPHILS # (AUTO) 0.2 K/uL (0.0-0.4); EOSINOPHILS % (AUTO) 1.4 % (0.0-4.0); HEMATOCRIT 31.2 % (36-54); HEMOGLOBIN 10.6 g/dL (14.0-18.0); LYMPHOCYTES # (AUTO) 1.9 K/uL (1.0-5.5); LYMPHOCYTES % (AUTO) 15.1 % (20.5-51.5); MEAN CORPUSCULAR HEMOGLOBIN 29 pg (27-31); MEAN CORPUSCULAR HGB CONC 34 % (32-36); MEAN CORPUSCULAR VOLUME 86 fL (79.0-98.0); MONOCYTES % (AUTO) 7.7 % (1.7-9.3); NEUTROPHILS # (AUTO) 9.6 K/uL (1.8-7.7); NEUTROPHILS % (AUTO) 74.8 % (40.0-70.0); PLATELET COUNT (AUTO) 489 K/uL (130-430); RED BLOOD CELL COUNT(AUTO) 3.63 MIL/uL (4.2-6.2); RED CELL DISTRIBUTION WIDTH 13.6 % (9.0-15.0); WHITE BLOOD COUNT (AUTO) 12.9 K/uL (4.8-10.8)
--- NOTE | 2021-09-09 12:59 | NUR ---
RETURNED TO WAITING ROOM, AWAITING OPEN ER BED.
[2021-09-09 13:03] LABS: CALCIUM 9.3 mg/dL (8.4-11.0); CREATININE 1.25 mg/dL (0.55-1.30); POTASSIUM 3.6 mmol/L (3.5-5.1)
[2021-09-09 13:04] LABS: ALBUMIN 2.5 g/dL (3.4-4.8); C-REACTIVE PROTEIN QUANT 57.3 mg/dL (0-0.5); TOTAL BILIRUBIN 0.5 mg/dL (0.0-1.0)
--- NOTE | 2021-09-09 13:53 | NUR ---
BROUGHT BACK TO BED #4 AND REPORT GIVEN TO SERGEY
--- NOTE | 2021-09-09 14:03 | NUR ---
Requested call to insurance specialist. Per Dr. Avila, page request for admission/transfer. per facesheet: [facility]
[2021-09-09] MEDS ORDERED: CEFEPIME 1 GM in D5W 50 ML IV ONE (14:15)
[2021-09-09] MEDS ORDERED: VANCOMYCIN HCL 1,500 MG in NS 250 ML IV ONE (14:15)
--- NOTE | 2021-09-09 14:15 | NUR ---
Spoke to Karo, insurance [employer] case hardener, regarding pt status. stated they will try and transfer pt out and insurance doc will call for peer to peer.
--- NOTE | 2021-09-09 14:18 | NUR ---
Covid swab obtained
--- NOTE | 2021-09-09 14:35 | NUR ---
Spoke with showcase maker regarding transfer to [facility] in [place], Dr. Snyder will be accepting MD
--- NOTE | 2021-09-09 14:35 | NUR ---
Spoke to Sonia [facility], requested fax of faceheet. fax: [phone] direct #: [phone]
--- NOTE | 2021-09-09 14:37 | NUR ---
Johana Dickens called back to speak to Dr. Jamil rearading pt status.
--- NOTE | 2021-09-09 14:58 | NUR ---
TRANSFER INFO [facility] ACCEPTING: Dr. Snyder ROOM: 514B REPORT: [phone] Sonia stated she will all back with a vendor and ETA. Addendum: 09/09/21 at 1540 by [facility] ETA [id number]
--- NOTE | 2021-09-09 15:08 | NUR ---
no blood cultures drawn, verified with Dr. Jamil, order for cultures prior to antibiotics
[2021-09-09] MEDS ORDERED: VANCOMYCIN HCL 1000 MG/VIAL IV ONE (16:09)
[2021-09-09] MEDS ORDERED: CEFEPIME 1 GM/VIAL (MAXIPIME) ONE (16:09)
--- NOTE | 2021-09-09 17:50 | NUR ---
Report to Hermelinda at [facility]
[2021-09-09 18:06] VITALS: BP_SYST 180
--- NOTE | 2021-09-09 18:08 | NUR ---
Patient to be transferred to [facility]. Is being transferred due to insurance. Receiving facility has accepting physician and available space. ER physician has signed transfer form. Patient or responsible republican has agreed to transfer and signed form. Patient belongings inventoried and will be sent with patient. Copy of nursing notes, lab reports, EKG, Physicians Orders and X-rays to be sent with patient. Report called to Hermelinda at receiving facility. Receiving physician is Dr. Snyder. [facility] has arrived and left with pt. for transfer. ETA is 56 minutes to [facility].
== END 2021-09-09 18:08 | disposition short-term general hospital (02) ==
LOC: SED 11:59
DX: E11.621 Type 2 diabetes mellitus with foot ulcer (principal); L97.519 Non-pressure chronic ulcer of other part of right foot with unspecified severity; I10 Essential (primary) hypertension; Z79.899 Other long term (current) drug therapy; Z20.822 Contact with and (suspected) exposure to COVID-19
CPT/HCPCS: 36415; 73620; 80053; 83605; 85025; 85610; 85730; 86140; 87040; 87426; 96365; 96366; 96367; 99285; J0692; J3370; J7050